=== PATIENT | female | born 1980 | race Caucasian/White ===

== ENCOUNTER 2018-07-20 10:42 | Inpatient (IN) | payer BC ==
--- NOTE | 2018-07-20 11:01 | ER Document Report ---
ED Medical Screen (RME) - General Chief Complaint: Vaginal Discharge Stated Complaint: VAGINAL DISCHARGE Time Seen by Provider: 07/20/18 10:59 Mode of Arrival: Ambulatory Information source: Patient TRAVEL OUTSIDE OF THE [place] IN LAST 30 DAYS: No - HPI Patient complains to provider of: vaginal d/c Onset: Other - pt sent here from for possible systemic yeast infection - Related Data Allergies/Adverse Reactions: sulfamethoxazole [From Bactrim] Allergy (Verified 07/20/18 10:43) trimethoprim [From Bactrim] Allergy (Verified 07/20/18 10:43) Physical Exam - Vital signs Vitals: Temp Pulse Resp BP Pulse Ox 97.8 F 119 H 18 114/72 100 07/20/18 10:50 07/20/18 10:50 07/20/18 10:50 07/20/18 10:50 07/20/18 10:50 Course - Vital Signs Vital signs: Temp Pulse Resp BP Pulse Ox 97.8 F 119 H 18 114/72 100 07/20/18 10:50 07/20/18 10:50 07/20/18 10:50 07/20/18 10:50 07/20/18 10:50
--- NOTE | 2018-07-20 11:49 | ER Document Report ---
ED General - General Chief Complaint: Vaginal Discharge Stated Complaint: VAGINAL DISCHARGE Time Seen by Provider: 07/20/18 10:59 Mode of Arrival: Ambulatory Notes: Patient is a 38-year-old female who states no past medical history who presents stating on and Sunday she felt a little "feverish". She states on she had a temperature of 101. She denies any recorded fever since that time. Temperature max since that time is been "99". Patient denies any runny nose, congestion, cough, headache, neck stiffness, abdominal pain, dysuria , or vomiting. Patient does states she has had around 10-15 bouts of nonbloody diarrhea since last evening. She denies any recent trips or travel. She denies any recent antibiotics. Patient states for 2 days she has had some pain and redness to her breast with some pain to her right axilla. She denies any cough or shortness of breath. She states pain is worse when she moves her right arm. No history of abscesses in the past. Patient also states that she has had some whiteness to her tongue as well as some whitish vaginal discharge. Patient is concerned about a yeast infection. Patient denies a history of diabetes and denies any recent weight loss. TRAVEL OUTSIDE OF THE [place] IN LAST 30 DAYS: No - HPI Onset: Other - See above Quality of pain: No pain Severity: Mild Pain Level: Denies Associated symptoms: Other - See above Exacerbated by: Other - See above Relieved by: Other - See above Similar symptoms previously: No Recently seen / treated by doctor: No - Related Data Allergies/Adverse Reactions: sulfamethoxazole [From Bactrim] Allergy (Verified 07/20/18 10:43) trimethoprim [From Bactrim] Allergy (Verified 07/20/18 10:43) Past Medical History - General Information source: Patient - Social History Smoking Status: Never Smoker Frequency of alcohol use: Daily - 2 glasses of wine Drug Abuse: None Family History: Reviewed & Not Pertinent Patient has suicidal ideation: No Patient has homicidal ideation: No Renal/ Medical History: Denies: Hx Peritoneal Dialysis Past Surgical History: Reports: Hx Gynecologic Surgery - D&C, Hx Tonsillectomy Review of Systems - Review of Systems Constitutional: denies: Fever EENT: denies: Eye discharge, Nose discharge Cardiovascular: denies: Chest pain, Palpitations Respiratory: denies: Short of breath Gastrointestinal: denies: Vomiting Genitourinary: denies: Dysuria Musculoskeletal: denies: Leg swelling Skin: Other - no hives. denies: Rash Neurological/Psychological: Other - no slurred speech -: Yes All other systems reviewed and negative Physical Exam - Vital signs Vitals: Temp Pulse Resp BP Pulse Ox 97.8 F 119 H 18 114/72 100 07/20/18 10:50 07/20/18 10:50 07/20/18 10:50 07/20/18 10:50 07/20/18 10:50 Notes: Reviewed vital signs and nursing note as charted by RN. CONSTITUTIONAL: Alert and oriented and responds appropriately to questions. Well -appearing; well-nourished HEAD: Normocephalic; atraumatic EYES: PERRL; Conjunctivae clear, sclerae non-icteric ENT: Normal nose; no rhinorrhea; moist mucous membranes; patient does have some whitish plaque-like removable lesions with underlying erythema to the ventral side of the tongue. There are no posterior pharyngeal lesions or mucosal lesions present NECK: Supple without meningismus; non-tender; no supra clavicular cervical lymphadenopathy, no masses CARD: Regular rate and rhythm; no murmurs, no clicks, no rubs, no gallops; symmetric distal pulses RESP: Normal chest excursion without splinting or tachypnea; patient does have some erythema and induration without fluctuance or tenderness to the medial aspect of the right breast. There is no erythema or desquamation to the underside of the breast. There is no nipple discharge. There is no puckering of the breast or nipple; patient does have some palpable nonfluctuant lymphadenopathy to the right axilla erythema to the overlying skin; breath sounds clear and equal bilaterally; no wheezes, no rhonchi, no rales ABD/GI: Normal bowel sounds; non-distended; soft, non-tender BACK: The back appears normal and is non-tender to palpation EXT: See above SKIN: See above NEURO: Moves all extremities equally; Motor and sensory function intact PSYCH: The patient's mood and manner are appropriate. Grooming and personal hygiene are appropriate. Course - Re-evaluation Re-evalutation: 07/20/18 11:49 Given the history and physical examination I will order basic labs, perform a pelvic examination, obtain an x-ray of the chest, and reassess. I have a concern for possible new onset diabetes with a yeast infection to the tongue, vagina, and breast. I also have concern for possible cancer to the right breast with lymphadenopathy. I do not detect any abscesses that require incision and drainage at this time. Given that the patient did have a fever 2 days ago, I will obtain a blood culture. 07/20/18 14:51 Labs as recorded. X-ray of the chest is still pending. It appears the patient is in acute renal failure. Urine creatinine and sodium. I have started the patient on fluid after ordering a urine sodium and creatinine. 07/20/18 14:59 Pelvic examination shows what appears to be an obvious yeast infection with some perivaginal erythema and a clumpy white substance in the vaginal vault. X-rays pending. Diflucan has been given. - Vital Signs Vital signs: Temp Pulse Resp BP Pulse Ox 98.0 F 108 H 16 100/66 98 07/20/18 12:17 07/20/18 12:17 07/20/18 12:17 07/20/18 12:17 07/20/18 12:17 - Laboratory Result Diagrams: 07/20/18 12:00 07/20/18 13:23 Laboratory results interpreted by me: 07/20/18 07/20/18 07/20/18 12:00 13:23 15:00 Seg Neuts % (Manual) 84 H Band Neutrophils % 9 H Lymphocytes % (Manual) 1 L Metamyelocytes % 1 H Abs Neuts (Manual) 8.7 H Abs Lymphs (Manual) 0.1 L Sodium 131.7 L Chloride 95 L Carbon Dioxide 19 L BUN 27 H Creatinine 2.11 H Est GFR ( Amer) 31 L Est GFR (Non-Af Amer) 26 L Glucose 119 H Calcium 8.3 L AST 43 H Total Protein 6.0 L Albumin 3.4 L Urine Protein 100 H Urine Blood SMALL H Ur Leukocyte Esterase SMALL H Discharge - Discharge Clinical Impression: Yeast infection Acute renal failure Qualifiers: Acute renal failure type: unspecified Qualified Code(s): N17.9 - Acute kidney failure, unspecified Diarrhea Qualifiers: Diarrhea type: unspecified type Qualified Code(s): R19.7 - Diarrhea, unspecified Condition: Fair Disposition: ADMITTED OBSERVATION Admitting Provider: Hospitalist
[2018-07-20 12:30] LABS: HEMATOCRIT 38.4 % (36.0-47.0); HEMOGLOBIN 13.5 g/dL (12.0-15.5); MEAN CORPUSCULAR HEMOGLOBIN 31.7 pg (27.0-33.4); MEAN CORPUSCULAR HGB CONC 35.3 g/dL (32.0-36.0); MEAN CORPUSCULAR VOLUME 90 fl (80-97); PLATELET COUNT 159 10^3/uL (150-450); RED BLOOD COUNT 4.27 10^6/uL (3.72-5.28); RED CELL DISTRIBUTION WIDTH 13.2 % (11.5-14.0); WHITE BLOOD COUNT 9.3 10^3/uL (4.0-10.5)
[2018-07-20 12:49] LABS: ABSOLUTE LYMPHOCYTES# (MANUAL) 0.1 10^3/uL (0.5-4.7); ABSOLUTE MONOCYTES # (MANUAL) 0.5 10^3/uL (0.1-1.4); ABSOLUTE NEUTROPHILS# (MANUAL) 8.7 10^3/uL (1.7-8.2); BAND NEUTROPHILS % (MANUAL) 9 % (3-5); BASOPHILS % (MANUAL) 0 % (0-2); EOSINOPHILS % (MANUAL) 0 % (0-6); LYMPHOCYTES % (MANUAL) 1 % (13-45); METAMYELOCYTES % (MANUAL) 1 % (0); MONOCYTES % (MANUAL) 5 % (3-13); SEGMENTED NEUTROPHILS % (MAN) 84 % (42-78); TOTAL CELLS COUNTED 100; TOXIC GRANULATION 1+
[2018-07-20 12:50] LABS: PLATELET COMMENT ADEQUATE; TOXIC VACUOLATION PRESENT
[2018-07-20 14:03] LABS: ALANINE AMINOTRANSFERASE 45 U/L (9-52); ALBUMIN 3.4 g/dL (3.5-5.0); ALKALINE PHOSPHATASE 67 U/L (38-126); ANION GAP 18 (5-19); ASPARTATE AMINO TRANSFERASE 43 U/L (14-36); BILIRUBIN,DIRECT 0.4 mg/dL (0.0-0.4); BILIRUBIN,TOTAL 0.9 mg/dL (0.2-1.3); BLOOD UREA NITROGEN 27 mg/dL (7-20); CALCIUM 8.3 mg/dL (8.4-10.2); CARBON DIOXIDE 19 mmol/L (22-30); CHLORIDE 95 mmol/L (98-107); GLUCOSE 119 mg/dL (75-110); POTASSIUM 3.8 mmol/L (3.6-5.0); SODIUM 131.7 mmol/L (137-145)
[2018-07-20] MEDS ORDERED: NORMAL SALINE 1000 ML 1,000 ML IV ONE (14:51)
[2018-07-20] MEDS ORDERED: FLUCONAZOLE 100 MG TABLET PO ONE (14:58)
[2018-07-20 15:22] LABS: T.VAGINALIS (WET MOUNT) NO TRICHOMONAS SEEN; WBCS (WET MOUNT) 1+ WBCS SEEN; YEAST (WET MOUNT) NO YEAST SEEN
[2018-07-20 15:23] LABS: BACTERIA (WET MOUNT) 3+ BACTERIA SEEN; RBCS (WET MOUNT) FEW RBCS SEEN
--- NOTE | 2018-07-20 15:25 | RADIOLOGY REPORT (SQ) ---
EXAM DESCRIPTION: CHEST 2 VIEWS COMPLETED DATE/TIME: 07/20/2018 3:16 pm REASON FOR STUDY: 36; right breast redness COMPARISON: None. EXAM PARAMETERS: NUMBER OF VIEWS: two views TECHNIQUE: Digital Frontal and Lateral radiographic views of the chest acquired. RADIATION DOSE: NA LIMITATIONS: none FINDINGS: LUNGS AND PLEURA: No opacities, masses or pneumothorax. No pleural effusion. MEDIASTINUM AND HILAR STRUCTURES: No masses or contour abnormalities. HEART AND VASCULAR STRUCTURES: Heart normal size. No evidence for failure. BONES: No acute findings. HARDWARE: None in the chest. OTHER: No other significant finding. IMPRESSION: NO ACUTE RADIOGRAPHIC FINDING IN THE CHEST. TECHNICAL DOCUMENTATION: JOB ID: [id number] [place]-72 2010 [employer]- All Rights Reserved Reading location - IP/workstation name: [email or web address]
[2018-07-20 15:26] LABS: AMORPHOUS SEDIMENT,URINE TRACE /HPF; APPEARANCE,URINE TURBID; BILIRUBIN,URINE NEGATIVE (NEGATIVE); COLOR,URINE AMBER; GLUCOSE, URINE NEGATIVE (NEGATIVE); KETONES,URINE NEGATIVE (NEGATIVE); LEUKOCYTE ESTERASE,URINE SMALL (NEGATIVE); NITRITE,URINE NEGATIVE (NEGATIVE); PROTEIN,URINE 100 mg/dL (NEGATIVE); URINE SPECIFIC GRAVITY 1.019; UROBILINOGEN,URINE NEGATIVE mg/dL (<2.0)
[2018-07-20 16:05] LABS: URINE CREATININE 214.8 mg/dL (15-278)
[2018-07-20] MEDS ORDERED: HYDROCODONE/ACETAMINOPHEN 5-325 MG TABLET PO ONE (16:22)
[2018-07-20] MEDS ORDERED: HYDROCODONE/ACETAMINOPHEN 5-325 MG TABLET PO PRN (16:47)
[2018-07-20] MEDS ORDERED: NORMAL SALINE 1000 ML 1,000 ML IV PRN (16:48)
[2018-07-20 16:53] LABS: CHLAM PCR NOT DETECTED (NOT DETECT); GON PCR NOT DETECTED (NOT DETECT)
[2018-07-20] MEDS ORDERED: VANCOMYCIN HCL 0 MG in DEXTROSE 5%-WATER 250 ML IV NR (17:00)
--- NOTE | 2018-07-20 18:23 | PDOC H&P ---
History of Present Illness Patient complains of: fever, rash, tenderness on right axillary area History of Present Illness: TY OLSEN is a 38 year old female with no significant past medical, past surgical and no significant family history who presented with fever and right axillary pain. Patient is with on bedside. She report she developed a fever of 102 F on along with some pain on the right axillary and right breast area. She noticed the day after macular rashes oon the right breast area. She denies breast discharge. She also only complains of minimal right breast tenderness. Denies trauma to the area. She does shave her armpit but denies an open wound in the area. She also reports of acute diarrhea particularly loose, not grossly watery and non-bloody stools with more than 15 episodes last night. Denies history of C diff or recent antibiotics or recent sick contacts. She also reports of noticing whitish plaques on her tongue and having a lightly foul smelling vaginal discharge. Denies dysuria, hematuria, frequency or flank pains. Past Surgical History Past Surgical History: Reports: Tonsillectomy Social History Smoking Status: Never Smoker Family History Family History: Reviewed & Not Pertinent Parental Family History Reviewed: Yes - no premature CAD Children Family History Reviewed: No Sibling(s) Family History Reviewed.: No Medication/Allergy Allergies/Adverse Reactions: sulfamethoxazole [From Bactrim] Allergy (Verified 07/20/18 10:43) trimethoprim [From Bactrim] Allergy (Verified 07/20/18 10:43) Review of Systems All systems: reviewed and no additional remarkable complaints except as stated - as mentioned in HPI Physical Exam Vital Signs: Temp Pulse Resp BP Pulse Ox 98.0 F 108 H 16 100/66 98 07/20/18 12:17 07/20/18 12:17 07/20/18 12:17 07/20/18 12:17 07/20/18 12:17 Intake & Output 07/19/18 07/20/18 07/21/18 06:59 06:59 06:59 Weight 154 lb 12.232 oz General appearance: PRESENT: no acute distress, well-developed, well-nourished Head exam: PRESENT: atraumatic, normocephalic Eye exam: PRESENT: conjunctiva pink, EOMI, PERRLA. ABSENT: scleral icterus Ear exam: PRESENT: normal external ear exam Mouth exam: PRESENT: moist, tongue midline Neck exam: ABSENT: carotid bruit, JVD, lymphadenopathy, thyromegaly Respiratory exam: PRESENT: clear to auscultation vanessa. ABSENT: rales, rhonchi, wheezes Cardiovascular exam: PRESENT: RRR. ABSENT: diastolic murmur, rubs, systolic murmur Pulses: PRESENT: normal dorsalis pedis pul GI/Abdominal exam: PRESENT: normal bowel sounds, soft. ABSENT: distended, guarding, mass, organolmegaly, rebound, tenderness Rectal exam: PRESENT: deferred Neurological exam: PRESENT: alert, awake, oriented to person, oriented to place , oriented to time, oriented to situation, CN II-XII grossly intact. ABSENT: motor sensory deficit Skin exam: PRESENT: other - note of macular rahses with areas of confluence extending from the right axillary to the right breast areas, no open lesions or drainage, no breast discharge, minimal tenderness on the right axillary area Results Laboratory Results: 07/20/18 12:00 07/20/18 13:23 07/20/18 07/20/18 07/20/18 12:00 12:00 13:23 WBC 9.3 RBC 4.27 Hgb 13.5 Hct 38.4 MCV 90 MCH 31.7 MCHC 35.3 RDW 13.2 Plt Count 159 Seg Neutrophils % Not Reportable Lymphocytes % Not Reportable Monocytes % Not Reportable Eosinophils % Not Reportable Basophils % Not Reportable Absolute Neutrophils Not Reportable Absolute Lymphocytes Not Reportable Absolute Monocytes Not Reportable Absolute Eosinophils Not Reportable Absolute Basophils Not Reportable Sodium Cancelled 131.7 L Potassium Cancelled 3.8 Chloride Cancelled 95 L Carbon Dioxide Cancelled 19 L Anion Gap Cancelled 18 BUN Cancelled 27 H Creatinine Cancelled 2.11 H Est GFR ( Amer) Cancelled 31 L Est GFR (Non-Af Amer) Cancelled 26 L Glucose Cancelled 119 H Calcium Cancelled 8.3 L Total Bilirubin Cancelled 0.9 AST Cancelled 43 H ALT Cancelled 45 Alkaline Phosphatase Cancelled 67 Total Protein Cancelled 6.0 L Albumin Cancelled 3.4 L Urine Color Urine Appearance Urine pH Ur Specific [place] Urine Protein Urine Glucose (UA) Urine Ketones Urine Blood Urine Nitrite Ur Leukocyte Esterase Urine WBC (Auto) Urine RBC (Auto) 07/20/18 15:00 WBC RBC Hgb Hct MCV MCH MCHC RDW Plt Count Seg Neutrophils % Lymphocytes % Monocytes % Eosinophils % Basophils % Absolute Neutrophils Absolute Lymphocytes Absolute Monocytes Absolute Eosinophils Absolute Basophils Sodium Potassium Chloride Carbon Dioxide Anion Gap BUN Creatinine Est GFR ( Amer) Est GFR (Non-Af Amer) Glucose Calcium Total Bilirubin AST ALT Alkaline Phosphatase Total Protein Albumin Urine Color JARET Urine Appearance TURBID Urine pH 5.0 Ur Specific [place] 1.019 Urine Protein 100 H Urine Glucose (UA) NEGATIVE Urine Ketones NEGATIVE Urine Blood SMALL H Urine Nitrite NEGATIVE Ur Leukocyte Esterase SMALL H Urine WBC (Auto) 55 Urine RBC (Auto) 4 Impressions: Chest X-Ray 07/20/18 14:39 IMPRESSION: NO ACUTE RADIOGRAPHIC FINDING IN THE CHEST. Assessment & Plan - Diagnosis (1) Cellulitis Is this a current diagnosis for this admission?: Yes Plan: Possible cellulitis of the right axilla and right breast. Will start empirically on vancomycin. Will check a right breast US. (2) Acute kidney injury Is this a current diagnosis for this admission?: Yes Plan: Creatinine is 2.2. No baseline Crea but patient denies previous renal problems. Possibly pre renal. Will start IV fluids. - Time Time Spent: 30 to 50 Minutes
[2018-07-20] MEDS ORDERED: VANCOMYCIN HCL 1,500 MG in DEXTROSE 5%-WATER 250 ML IV ONE (20:00)
--- NOTE | 2018-07-20 20:21 | RADIOLOGY REPORT (SQ) ---
EXAM DESCRIPTION: U/S CHEST COMPLETED DATE/TIME: 07/20/2018 6:13 pm REASON FOR STUDY: right axillary/breast erythema, rashes COMPARISON: None. TECHNIQUE: Dynamic and static grayscale images acquired of the localized site of clinical concern an d recorded on PACS. Additional selected color Doppler and spectral images recorded. SITE OF CONCERN: Right breast LIMITATIONS: None. FINDINGS: There is a complex 2.7 x 2.1 x 1.4 cm cystic structure in the right breast at the 10 o'jose ck position approximately 5 cm from the nipple and 2.5 cm deep to the skin surface. No internal vasc ularity. OTHER: No other significant finding. IMPRESSION: There is a complex 2.7 x 2.1 x 1.4 cm cystic structure in the right breast at the 10 o'c lock position approximately 5 cm from the nipple and 2.5 cm deep to the skin surface. No internal va scularity. TECHNICAL DOCUMENTATION: JOB ID: [id number] [place]-72 2010 [employer]- All Rights Reserved Reading location - IP/workstation name: [email or web address]
[2018-07-20] MEDS ORDERED: VANCOMYCIN HCL INJ 500 MG VIAL ONE (21:20)
[2018-07-20] MEDS ORDERED: VANCOMYCIN HCL INJ 1000 MG VIAL ONE (21:20)
[2018-07-20] MEDS: HEPARIN SOD (PORCINE) 5,000 UNIT/ML 1 ML SYRINGE SUBCUT SCH (23:16)
[2018-07-21] MEDS: ACETAMINOPHEN 325 MG TABLET PO PRN ×2 (00:15→06:19)
[2018-07-21] MEDS: NORMAL SALINE 1000 ML 1,000 ML IV PRN ×5 (00:20→08:49)
[2018-07-21] MEDS ORDERED: HYDROCORTISONE SOD SUCCINATE INJ/PF 100 MG/2 ML SDV IV ONE (07:00)
[2018-07-21] MEDS ORDERED: DEXTROSE 5%-WATER 250 ML with NOREPINEPHRINE BITARTRATE 4 MG IV PRN ×2 (07:01)
[2018-07-21] MEDS ORDERED: NOREPINEPHRINE BITARTRATE INJ/PF 4 MG/4 ML SDV IV ONE (07:04)
[2018-07-21] MEDS ORDERED: VASOPRESSIN INJ 20 UNIT/1 ML VIAL ONE (07:09)
[2018-07-21] MEDS ORDERED: CEFEPIME 1 GM/D5W RTU 1 GM/50 ML RTUPB IV ONE (07:15)
[2018-07-21] MEDS ORDERED: NORMAL SALINE 1000 ML 2,000 ML IV ONE (07:30)
[2018-07-21] MEDS ORDERED: DEXTROSE 5%-WATER 250 ML with VASOPRESSIN 100 UNIT IV PRN ×2 (08:35)
[2018-07-21] MEDS ORDERED: ACETAMINOPHEN 1,000 MG/100 ML RTUPB IV PRN (08:35)
--- NOTE | 2018-07-21 08:49 | EKG REPORT ---
SEVERITY:- BORDERLINE ECG - SINUS TACHYCARDIA PROBABLE LEFT ATRIAL ABNORMALITY BORDERLINE T ABNORMALITIES, INFERIOR LEADS : Confirmed by: Marissa Rose MD 21-Jul-2018 08:48:34
--- NOTE | 2018-07-21 09:30 | Operative Report ---
Operative Report DATE OF SURGERY: 07/21/18 PREOPERATIVE DIAGNOSIS: Right axillary and right breast pain, cellulitis POSTOPERATIVE DIAGNOSIS: Same OPERATION: 1. Focused ultrasound right breast. 2. Focused ultrasound of the right axilla SURGEON: BURKE HUBBARD ANESTHESIA: Other - None TISSUE REMOVED OR ALTERED: None COMPLICATIONS: None ESTIMATED BLOOD LOSS: None INTRAOPERATIVE FINDINGS: See below PROCEDURE: The patient was examined in the intensive care unit. She had difficulty abducting her right arm. Right arm in the right axilla as well as the right breast examined. The findings were significant for a swollen mildly erythematous edematous right breast particularly around the areolar complex. There was no evidence of skin breakdown drainage or foul smell. There is tenderness along the tail of Zuniga and tenderness in the axilla however no focal skin changes or skin breakdown, or palpable masses. The proximal right upper extremity was mildly swollen range of motion of the elbow wrist and fingers intact. No evidence of streaking. Focused ultrasound was now performed of the right breast and right axilla. Gel was placed on both of these areas in the area scanned with a variable frequency linear transducer. The right breast was noted to have diffuse, superficial and intermediate depth hypoechogenicity scattered around the areole complex consistent with edema. I carefully looked in the right upper quadrant and I could not see a complex cyst previously reported by radiology on chest ultrasound. I scanned the right axilla. There are multiple enlarged lymph nodes mostly with preserved hilum. They appeared inflammatory. There was no discrete abscess or fluid collection. Impression: Advanced cellulitis of the right breast, with reactive right axillary lymph nodes causing sepsis; exact etiology obscure: No physical examination or radiographic indication to drain the soft tissue at this point Recommendations: 1. Continue current aggressive septic workup and management 2. We will follow patient closely with you to ensure she improves; if she does not, more aggressive imaging, possible intervention may be required. I explained to the patient as well as staff that this is an infection in evolution , and the need for surgery may car changer time.
[2018-07-21] MEDS ORDERED: PHENTOLAMINE MESYLATE INJ 5 MG VIAL SUBCUT ONE (09:40)
[2018-07-21] MEDS ORDERED: PHENTOLAMINE MESYLATE INJ 5 MG VIAL ONE (09:42)
[2018-07-21 09:48] LABS: ALANINE AMINOTRANSFERASE 61 U/L (9-52); ALBUMIN 2.2 g/dL (3.5-5.0); ALKALINE PHOSPHATASE 59 U/L (38-126); ANION GAP 14 (5-19); ASPARTATE AMINO TRANSFERASE 59 U/L (14-36); BILIRUBIN,DIRECT 0.7 mg/dL (0.0-0.4); BILIRUBIN,TOTAL 1.2 mg/dL (0.2-1.3); BLOOD UREA NITROGEN 32 mg/dL (7-20); CARBON DIOXIDE 13 mmol/L (22-30); CHLORIDE 104 mmol/L (98-107); GLUCOSE 118 mg/dL (75-110); POTASSIUM 3.6 mmol/L (3.6-5.0); SODIUM 130.5 mmol/L (137-145); TOTAL PROTEIN 4.3 g/dL (6.3-8.2)
[2018-07-21 09:51] LABS: HEMOGLOBIN 12.1 g/dL (12.0-15.5); MEAN CORPUSCULAR HEMOGLOBIN 30.9 pg (27.0-33.4); MEAN CORPUSCULAR HGB CONC 34.6 g/dL (32.0-36.0); MEAN CORPUSCULAR VOLUME 89 fl (80-97); RED BLOOD COUNT 3.91 10^6/uL (3.72-5.28); RED CELL DISTRIBUTION WIDTH 13.6 % (11.5-14.0); WHITE BLOOD COUNT 4.2 10^3/uL (4.0-10.5)
[2018-07-21 09:56] LABS: CALCIUM 6.4 mg/dL (8.4-10.2)
[2018-07-21 09:59] LABS: PLATELET COUNT 84 10^3/uL (150-450)
[2018-07-21] MEDS: HEPARIN SOD (PORCINE) 5,000 UNIT/ML 1 ML SYRINGE SUBCUT SCH (09:59)
[2018-07-21] MEDS ORDERED: CEFEPIME 1 GM/D5W RTU 1 GM/50 ML RTUPB IV SCH ×2 (10:00→18:00)
[2018-07-21 10:25] LABS: BASOPHILS % (MANUAL) 0 % (0-2); NUCLEATED RED BLOOD CELLS 1 /100 WBC (0); TOTAL CELLS COUNTED 100
[2018-07-21 10:29] LABS: BURR CELLS 1+; OVALOCYTES SLIGHT; PLATELET COMMENT DECREASED; POIKILOCYTOSIS 1+; TOXIC GRANULATION 2+; TOXIC VACUOLATION PRESENT
[2018-07-21] MEDS ORDERED: PHENYLEPHRINE HCL INJ/PF 10 MG/1 ML SDV ONE (10:43)
[2018-07-21] MEDS ORDERED: CALCIUM GLUCONATE 1000 MG/10 ML INJ IV ONE (11:00)
[2018-07-21] MEDS: MAGNESIUM SULFATE/D5W 1 GM/100 ML RTUPB IV SCH ×3 (11:03→14:06)
[2018-07-21] MEDS ORDERED: DEXTROSE 5%-WATER 250 ML with PHENYLEPHRINE HCL 40 MG IV PRN ×2 (11:26)
[2018-07-21] MEDS ORDERED: VANCOMYCIN HCL 1,000 MG in DEXTROSE 5%-WATER 250 ML IV SCH (12:00)
[2018-07-21] MEDS ORDERED: LIDOCAINE 1% INJ-PF (10 MG/ML) 30 ML SDV ONE (12:30)
--- NOTE | 2018-07-21 13:45 | RADIOLOGY REPORT (SQ) ---
EXAM DESCRIPTION: CHEST SINGLE VIEW COMPLETED DATE/TIME: 07/21/2018 1:06 pm REASON FOR STUDY: Central Line Placement COMPARISON: 07/20/2018 NUMBER OF VIEWS: One view. TECHNIQUE: Single frontal radiographic view of the chest acquired. LIMITATIONS: None. FINDINGS: Central venous access catheter placed via left IJ approach. Catheter tip at right atrium . No pneumothorax. Radiographic appearance of the chest otherwise stable. IMPRESSION: Central venous access catheter placed via left IJ approach. Catheter tip at right atri um. No pneumothorax. TECHNICAL DOCUMENTATION: JOB ID: [id number] [place]-72 2010 [employer]- All Rights Reserved Reading location - IP/workstation name: [employer]
[2018-07-21] MEDS ORDERED: CLINDAMYCIN 900 MG/D5W RTU 900 MG/50 ML RTUPB IV SCH (14:00)
--- NOTE | 2018-07-21 14:30 | Operative Report ---
Nonrecallable Operative Report DATE OF SURGERY: 07/21/18 PREOPERATIVE DIAGNOSIS: Septic shock POSTOPERATIVE DIAGNOSIS: Same OPERATION: 1. Focused ultrasound left neck. 2. ultrasound directed insertion of left subclavian triple-lumen central venous access catheter. 3. Interpretation of portable chest x-ray SURGEON: BURKE HUBBARD ANESTHESIA: Local TISSUE REMOVED OR ALTERED: None COMPLICATIONS: None ESTIMATED BLOOD LOSS: Scant INTRAOPERATIVE FINDINGS: See below PROCEDURE: Informed consent was obtained. The patient was placed in Trendelenburg the left neck and chest wall were exposed, and prepped and draped in a sterile fashion. Surgical plan and surgical timeout discussed. The left neck was anesthetized with 1% lidocaine without epinephrine. Using the variable frequency linear transducer, real time, a 18-gauge needle and wire were threaded into the left internal jugular vein. The tract was dilated up, the dilator removed, and the triple-lumen central venous access catheter was threaded into the right internal jugular vein uneventfully to the hub. There was excellent aspiration and flush of saline through all 3 lumens. The catheter was affixed to the skin with a Biopatch and 2-0 silk suture; sterile dressing applied. The patient tolerated the procedure well. There were no complications. Portable upright chest x-ray demonstrated the tip of the catheter in the right atrium; no evidence of pneumothorax. Lung chao clear. Results of x-rays shared with nursing staff.
[2018-07-21] MEDS ORDERED: CALCIUM GLUCONATE 2,000 MG in DEXTROSE 5%-WATER 100 ML IV ONE (15:00)
--- NOTE | 2018-07-21 15:01 | PDOC TRANSFER SUMMARY ---
General Admission Date/PCP: 07/20/18 17:10 Resuscitation Status: Full Code - Transfer Diagnosis (1) Cellulitis Is this a current diagnosis for this admission?: Yes (2) Acute kidney injury Is this a current diagnosis for this admission?: Yes - Transfer Medications Home Medications: No Home Medications 07/21/18 Transfer Medications: Current Medications Acetaminophen (Tylenol 325 Mg Tablet) 650 mg PO Q6HP PRN PRN Reason: FEVER >101 Stop: 08/19/18 17:13 Last Admin: 07/21/18 06:19 Dose: 650 mg Hydrocodone Bitart/Acetaminophen ([place] 5-325 Mg Tablet) 1 tab PO NOW PRN PRN Reason: FOR PAIN Stop: 07/27/18 16:46 Last Admin: 07/20/18 21:44 Dose: 1 tab Heparin Sodium (Porcine) (Heparin Inj 5,000 Units/Ml 1 Ml Syringe) 5,000 unit SUBCUT Q12 PAYTON Stop: 08/19/18 21:59 Last Admin: 07/21/18 09:59 Dose: Not Given Sodium Chloride (Nacl 0.9% 1000 Ml Iv Soln) 1,000 mls @ 125 mls/hr IV CONTINUOUS PRN PRN Reason: THIS MED IS NOT "PRN" Stop: 08/19/18 18:59 Last Admin: 07/21/18 08:49 Dose: 125 mls/hr Norepinephrine Bitartrate 4 mg (/ Dextrose) 250 mls @ 0 mls/hr IV CONTINUOUS PRN; Protocol; Titrate PRN Reason: THIS MED IS NOT "PRN" Stop: 08/20/18 07:00 Last Titration: 07/21/18 14:14 Dose: 6 mcg/min, 22.5 mls/hr Vasopressin 100 unit/ Dextrose 250 mls @ 0 mls/hr IV CONTINUOUS PRN; Protocol; Titrate PRN Reason: THIS MED IS NOT "PRN" Stop: 08/20/18 08:34 Last Admin: 07/21/18 07:45 Dose: 0.03 unit/min, 4.5 mls/hr Acetaminophen (Ofirmev Inj/Pf 1000 Mg/100 Ml Sdv) 1,000 mg in 100 mls @ 400 mls /hr IV Q6HP PRN PRN Reason: FEVER >100.4 Stop: 07/24/18 08:34 Last Infusion: 07/21/18 10:15 Dose: Infused Cefepime HCl (Maxipime Rtu 1 Gm/D5w 50 Ml Premix Bag) 1 gm in 50 mls @ 100 mls/ hr IV Q12 PAYTON Stop: 07/28/18 09:59 Last Infusion: 07/21/18 09:59 Dose: Infused Vancomycin HCl 1,000 mg/ (Dextrose) 250 mls @ 166.667 mls/hr IV NOON PAYTON Stop: 07/28/18 11:59 Last Admin: 07/21/18 14:11 Dose: 166.7 mls/hr, 166.7 mls/hr Hard Fat/Phenylephrine 40 mg/ (Dextrose) 250 mls @ 0 mls/hr IV CONTINUOUS PRN; Protocol; Titrate PRN Reason: THIS MED IS NOT "PRN" Stop: 08/20/18 11:25 Last Titration: 07/21/18 14:14 Dose: 180 mcg/min, 67.5 mls/hr Clindamycin Phosphate/Dextrose (Cleocin Rtu 900 Mg/D5w 50 Ml Premix) 900 mg in 50 mls @ 50 mls/hr IV Q8 PAYTON Stop: 07/28/18 13:59 Last Admin: 07/21/18 14:06 Dose: 50 mls/hr, 50 mls/hr Calcium Gluconate 2,000 mg/ (Dextrose) 120 mls @ 60 mls/hr IV NOW ONE Stop: 07/21/18 16:59 Last Admin: 07/21/18 14:32 Dose: 60 mls/hr, 60 mls/hr Sodium Chloride (Saline Flush 2.5 Ml Monoject Prefil Syrin) 2.5 ml IV Q8 PAYTON Stop: 08/19/18 21:59 Last Admin: 07/21/18 14:06 Dose: Not Given - Allergies Allergies/Adverse Reactions: sulfamethoxazole [From Bactrim] Allergy (Verified 07/20/18 10:43) trimethoprim [From Bactrim] Allergy (Verified 07/20/18 10:43) Hospital Course Hospital Course: TY OLSEN is a 38 year old female with no significant past medical, past surgical and no significant family history who presented with fever and right axillary and right breast pain. She report she developed a fever of 102 F on along with some pain on the right axillary and right breast area. She noticed the day after macular rashes on the right breast area. She denies breast discharge. She also only complains of minimal right breast tenderness. Denies trauma to the area. She does shave her armpit but denies an open wound in the area. She also reports of noticing whitish plaques on her tongue and having a lightly non-foul smelling vaginal discharge. Denies dysuria, hematuria, frequency or flank pains. She was admitted for sepsis likely from right axillary/breast cellulitis. She was started on vancomycin and was given IV fluids. Overnight, patient continued to have fever. Early this morning, she started dropping her blood pressures with the lowest one at 60/50. US of the right breast showed a questionable cyst. Surgery evaluated patient and rescanned the right breast and deemed there was no abscess. Patient did have significant improvement of the erythema and tenderness on the right breast. Blood cultures are pending. She was continued on IV fluids and received a total of 6L of fluids so far. She was started on levophed and vaospressin. Prior to central line placement, patient did have some extravasation of levophed from her PIV on the left arm. She had initial purplish discoloration. Phentolamine was injected locally and this reversed reaction from the extravasation. Her left arm has good color and good capillary refill with full pulses. She required addition of neosynephrine. She is currently on 3 pressors. Patient will benefit from escalation of care to tertiary center. Called [facility] and discussed with yarn dumper, Dr. Jimmy Chambers who accepted the transfer. Physical Exam Vital Signs: Temp Pulse Resp BP Pulse Ox 100.2 F 127 H 23 H 61/51 L 94 07/21/18 12:00 07/21/18 12:00 07/21/18 12:00 07/21/18 12:00 07/21/18 12:00 Intake & Output 07/20/18 07/21/18 07/22/18 06:59 06:59 06:59 Intake Total 3160 2898 Output Total 400 195 Balance 2760 2703 Weight 162 lb 14.746 oz General appearance: PRESENT: no acute distress, well-developed, well-nourished Head exam: PRESENT: atraumatic, normocephalic Eye exam: PRESENT: conjunctiva pink, EOMI, PERRLA. ABSENT: scleral icterus Ear exam: PRESENT: normal external ear exam Mouth exam: PRESENT: moist, tongue midline Neck exam: ABSENT: carotid bruit, JVD, lymphadenopathy, thyromegaly Respiratory exam: PRESENT: chest wall tenderness - erythema on the right breast has significantly improved from yesterday, tenderness also has improved, clear to auscultation vanessa. ABSENT: rales, rhonchi, wheezes Cardiovascular exam: PRESENT: RRR, tachycardia. ABSENT: diastolic murmur, rubs , systolic murmur Pulses: PRESENT: normal dorsalis pedis pul GI/Abdominal exam: PRESENT: normal bowel sounds, soft. ABSENT: distended, guarding, mass, organolmegaly, rebound, tenderness Rectal exam: PRESENT: deferred Extremities exam: PRESENT: tenderness - minimal tenderness on the left arm, no cyanosis, full pulses Neurological exam: PRESENT: alert, awake, oriented to person, oriented to place , oriented to time, oriented to situation, CN II-XII grossly intact. ABSENT: motor sensory deficit Results Laboratory Results: 07/21/18 09:17 07/21/18 09:17 07/20/18 07/20/18 07/20/18 17:20 18:10 19:14 WBC RBC Hgb Hct MCV MCH MCHC RDW Plt Count Seg Neutrophils % Lymphocytes % Monocytes % Eosinophils % Basophils % Absolute Neutrophils Absolute Lymphocytes Absolute Monocytes Absolute Eosinophils Absolute Basophils Sodium Potassium Chloride Carbon Dioxide Anion Gap BUN Creatinine Est GFR ( Amer) Est GFR (Non-Af Amer) Glucose Lactic Acid 3.7 H 2.9 H Calcium Ionized Calcium [place] Magnesium Total Bilirubin AST ALT Alkaline Phosphatase Total Protein Albumin Stool for White Cells NO WBCs SEEN 07/20/18 07/21/18 07/21/18 23:09 09:17 09:17 WBC 4.2 RBC 3.91 Hgb 12.1 Hct 35.0 L MCV 89 MCH 30.9 MCHC 34.6 RDW 13.6 Plt Count 84 L Seg Neutrophils % Not Reportable Lymphocytes % Not Reportable Monocytes % Not Reportable Eosinophils % Not Reportable Basophils % Not Reportable Absolute Neutrophils Not Reportable Absolute Lymphocytes Not Reportable Absolute Monocytes Not Reportable Absolute Eosinophils Not Reportable Absolute Basophils Not Reportable Sodium 130.5 L Potassium 3.6 Chloride 104 Carbon Dioxide 13 L Anion Gap 14 BUN 32 H Creatinine 2.17 H Est GFR ( Amer) 30 L Est GFR (Non-Af Amer) 25 L Glucose 118 H Lactic Acid 3.0 H Calcium 6.4 L* Ionized Calcium [place] Magnesium Total Bilirubin 1.2 AST 59 H ALT 61 H Alkaline Phosphatase 59 Total Protein 4.3 L Albumin 2.2 L Stool for White Cells 07/21/18 07/21/18 07/21/18 09:17 09:17 10:57 WBC RBC Hgb Hct MCV MCH MCHC RDW Plt Count Seg Neutrophils % Lymphocytes % Monocytes % Eosinophils % Basophils % Absolute Neutrophils Absolute Lymphocytes Absolute Monocytes Absolute Eosinophils Absolute Basophils Sodium Potassium Chloride Carbon Dioxide Anion Gap BUN Creatinine Est GFR ( Amer) Est GFR (Non-Af Amer) Glucose Lactic Acid 3.0 H Calcium Ionized Calcium [place] 0.96 L Magnesium 1.0 L* Total Bilirubin AST ALT Alkaline Phosphatase Total Protein Albumin Stool for White Cells Impressions: Chest Ultrasound 07/20/18 00:00 IMPRESSION: There is a complex 2.7 x 2.1 x 1.4 cm cystic structure in the right breast at the 10 o'clock position approximately 5 cm from the nipple and 2.5 cm deep to the skin surface. No internal vascularity. Chest X-Ray 07/21/18 12:50 IMPRESSION: Central venous access catheter placed via left IJ approach. Catheter tip at right atrium. No pneumothorax.
[2018-07-21 15:13] VITALS: BP 98/54
[2018-07-22 14:57] LABS: SEGMENTED NEUTROPHILS % (MAN) 74 % (42-78)
[2018-07-22 14:58] LABS: BAND NEUTROPHILS % (MANUAL) 13 % (3-5); LYMPHOCYTES % (MANUAL) 1 % (13-45)
[2018-07-22 14:59] LABS: ABSOLUTE MONOCYTES # (MANUAL) 0.3 10^3/uL (0.1-1.4); EOSINOPHILS % (MANUAL) 1 % (0-6); MONOCYTES % (MANUAL) 7 % (3-13)
[2018-07-22 15:00] LABS: ABSOLUTE NEUTROPHILS# (MANUAL) 3.8 10^3/uL (1.7-8.2); METAMYELOCYTES % (MANUAL) 4 % (0)
== END 2018-07-21 15:50 | disposition short-term general hospital (02) | DRG 871 ==
LOC: ER 10:42 → ICU 16:44 → INTOOBSV 17:10 → UNDOADMOB 17:10 → OBSVTOIN 17:10 → EH 17:10 → 2N 19:39 → EH 19:39 → 2N 07-21 07:21 → ICU 07-21 07:21
PROVIDERS: ADMIT Internal Medicine; ATTEND Internal Medicine
PROC: 02H633Z Insertion of Infusion Device into Right Atrium, Percutaneous Approach (ICD-10-PCS; principal; 2018-07-21)
PROC: B244ZZZ Ultrasonography of Right Heart (ICD-10-PCS; 2018-07-21)
DX: A41.9 Sepsis, unspecified organism (principal); R65.21 Severe sepsis with septic shock; L03.111 Cellulitis of right axilla; N17.9 Acute kidney failure, unspecified; N61.0 Mastitis without abscess; Z88.3 Allergy status to other anti-infective agents; Z88.2 Allergy status to sulfonamides
CPT/HCPCS: 36415; 71045; 71046; 76604; 80053; 81001; 81025; 82330; 82570; 83605; 83735; 84300; 85025; 86701; 87040; 87086; 87210; 87491; 87591; 89055; 93005; 93010; 96360; 99285; C1751; J0131; J0610; J0692; J1720; J2370; J2760; J3370; J3475; J3490; J7030; J7060